=== PATIENT | female | born 2000 | race Caucasian/White ===

== ENCOUNTER 2021-10-29 16:32 | Inpatient (IN) | payer BC, OTHER ==
--- NOTE | 2021-10-28 20:57 | P.HPOB ---
History of Present Illness H&P Date: 10/28/21 Chief Complaint: Postdates induction of labor This is a 21 y.o. female, 3, para 0, with an estimated date of confinement of , estimated gestational age of 40-4/7 weeks, who presents for Cervidil cervical ripening followed by oxytocin induction of labor due to postdates. She complains of irregular contractions and pressure. Her ultrasound today showed estimated weight of 7#2oz. She transferred care to [place] from [place] at about 21 weeks. She did use THC throughout most of the and did cut down after she was started on Zoloft for anxiety. She did have a herpes outbreak at about 30 weeks and is currently on prophylaxis. labs: Blood type-A+ Antibody screen-neg RPR-NR Rubella-immune Hepatitis B surface antigen-neg HIV-NR GC/Chlamydia-neg Quad-neg 1 hr. GTT-71 GBS-neg OB Hx: . History of 2 miscarriages. 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 Review of Systems Constitutional: Denies chills, Denies fever Eyes: denies blurred vision, denies pain Ears, nose, mouth and throat: Denies headache, Denies sore throat Cardiovascular: Denies chest pain, Denies shortness of breath Respiratory: Denies cough Gastrointestinal: Reports abdominal pain (irregular contractions) Genitourinary: Reports pelvic pain, Reports Musculoskeletal: Reports low back pain Integumentary: Denies pruritus, Denies rash Neurological: Denies numbness, Denies weakness Psychiatric: Reports anxiety, Reports depression Past Medical History Past Medical History: No Reported History Past Surgical History: No Surgical Hx Reported Past Anesthesia/Blood Transfusion Reactions: No Reported Reaction Past Psychological History: Anxiety, Depression Smoking Status: Former smoker Past Alcohol Use History: None Reported Past Drug Use History: Marijuana - Past Family History Mother Family Medical History: No Reported History Medications and Allergies Home Medications Medication Instructions Recorded Confirmed Type Acyclovir 400 mg PO BID 10/28/21 10/28/21 History Pnv,Calcium 72/Iron/Folic Acid 1 each PO 10/28/21 History [ Plus Tablet] Sertraline [Zoloft] 25 mg PO DAILY 10/28/21 10/28/21 History Allergies Allergy/AdvReac Type Severity Reaction Status Date / Time No Known Allergies Allergy Verified 10/28/21 20:55 Exam Osteopathic Statement: *. No significant issues noted on an osteopathic structural exam other than those noted in the History and Physical/Consult. HEENT: within normal limits Heart: regular rate and rhythm Lungs: clear to auscultation bilaterally Abdomen: , non-tender Cervix: closed/60%/-2 heart tones: 140's by doppler Extremities: Neg. Nawaf's Assessment and Plan (1) 40 weeks gestation of Status: Acute Code(s): Z3A.40 - 40 WEEKS GESTATION OF SNOMED Code(s): 62089039 Plan: Admit for cervidil cervical ripening followed by oxytocin induction of labor. Expectant management. Epidural anesthesia if desired.
[2021-10-29] MEDS ORDERED: ZOLPIDEM 5 MG TAB PO PRN (16:55)
[2021-10-29] MEDS ORDERED: DINOPROSTONE 10 MG INSERT.ER VAGINAL ONE (16:55)
[2021-10-29 20:23] LABS: Amphetamine Screen,Urine Not Detected (NotDetected); Barbiturate Screen,Urine Not Detected (NotDetected); Benzodiazepines Screen,Urine Not Detected (NotDetected); Cocaine Screen,Urine Not Detected (NotDetected); Methadone Screen, Urine Not Detected (NotDetected); Opiate Screen,Urine Not Detected (NotDetected); Oxycodone Screen, Urine Not Detected (NotDetected); Phencyclidine Screen,Urine Not Detected (NotDetected); Tricyclic Antidepressant,Urine Not Detected (NotDetected); Urn Cannabinoid Scrn Detected (NotDetected)
[2021-10-29] MEDS: ACYCLOVIR 200 MG CAP PO SCH (20:53)
[2021-10-30] MEDS: BUTORPHANOL 1 MG/ML 1 ML VIAL IV PRN ×2 (03:44→08:41)
[2021-10-30] MEDS: LACTATED RINGERS 1,000 ML IV SCH ×3 (03:45→10:44)
[2021-10-30] MEDS ORDERED: OXYTOCIN 10 UNIT/ML 1 ML VIAL IM PRN (03:48)
[2021-10-30] MEDS ORDERED: LIDOCAINE 1% (PF) 10 MG/ML (30 ML SDV) SQ PRN (03:48)
[2021-10-30] MEDS ORDERED: CARBOPROST TROMETHAMINE 250 MCG/ML 1 ML AMP IM PRN (03:48)
[2021-10-30] MEDS ORDERED: TERBUTALINE 1 MG/ML VIAL SQ PRN (03:48)
[2021-10-30] MEDS ORDERED: METHYLERGONOVINE 0.2 MG/ML 1 ML AMP IM PRN (03:48)
[2021-10-30 04:13] LABS: Basophils # (A) 0.1 k/uL (0-0.2); Basophils % (A) 1 %; Eosinophils # (A) 0.2 k/uL (0-0.7); Eosinophils % (A) 1 %; HGB 14.1 gm/dL (11.4-16.0); Lymphocytes # (A) 2.1 k/uL (1.0-4.8); Lymphocytes % (A) 16 %; MCH 31.3 pg (25.0-35.0); MCHC 32.7 g/dL (31.0-37.0); MCV 95.5 fL (80.0-100.0); Mean Platelet Volume 9.8; Monocytes # (A) 0.7 k/uL (0-1.0); Monocytes % (A) 5 %; Neutrophils # (A) 10.3 k/uL (1.3-7.7); Neutrophils % (A) 76 %; Platelet Count 258 k/uL (150-450); RDW 12.8 % (11.5-15.5); WBC 13.5 k/uL (3.8-10.6)
[2021-10-30] MEDS ORDERED: OXYTOCIN 30 UNITS/500 ML NS 30 UNIT in SALINE 1 500ML.BAG IV SCH ×2 (06:00→13:47)
[2021-10-30] MEDS ORDERED: ONDANSETRON 4 MG/2 ML VIAL IVP STA (08:28)
--- NOTE | 2021-10-30 08:28 | P.PN ---
Progress Note - Text Progress Note Date: 10/30/21 Cervidil was removed earlier this morning. The patient has been vomiting quite a bit through the night and this morning. Cervix was noted to be 1 by nursing staff. Currently her cervix is 1-1/2 cm 70% and -2 station. Clear fluid is noted upon artificial rupture of membranes. heart tones are category 1 with irregular contractions. Will give Zofran as needed for nausea and vomiting. Continue oxytocin induction of labor. May have epidural anesthesia when making cervical change.
[2021-10-30] MEDS: PRENATAL VIT-IRON-FOLIC ACID 1 EACH CAP PO SCH (09:46)
[2021-10-30] MEDS: SERTRALINE 25 MG TAB PO SCH (09:46)
[2021-10-30] MEDS: ACYCLOVIR 200 MG CAP PO SCH ×2 (09:47→22:17)
[2021-10-30] MEDS ORDERED: LANOLIN CREAM 5 GM TUBE TOPICAL PRN (13:47)
[2021-10-30] MEDS ORDERED: SIMETHICONE 80 MG CHEWABLE PO PRN (13:47)
[2021-10-30] MEDS ORDERED: ACETAMINOPHEN TAB 325 MG TAB PO PRN (13:47)
[2021-10-30] MEDS ORDERED: diphenhydrAMINE 50 MG CAP PO PRN (13:47)
[2021-10-30] MEDS ORDERED: diphenhydrAMINE 25 MG CAP PO PRN (13:47)
[2021-10-30] MEDS ORDERED: ZOLPIDEM 5 MG TAB PO PRN (13:47)
[2021-10-30] MEDS ORDERED: diphenhydrAMINE 50 MG/ML 1 ML VIAL IVP PRN ×2 (13:47)
[2021-10-30] MEDS ORDERED: BENZOCAINE/MENTHOL SPRAY 1 GM/SPRAY AEROSOL TOPICAL PRN (13:47)
[2021-10-30] MEDS ORDERED: HYDROCORTISONE 2.5% RECTAL CREAM 30 GM TUBE RECTAL PRN (13:47)
[2021-10-30] MEDS: IBUPROFEN 600 MG TAB PO PRN ×2 (14:16→21:34)
--- NOTE | 2021-10-30 19:02 | P.PROBDLV ---
Vaginal Delivery Note - . Vaginal Delivery Note: The patient progressed to complete dilation after oxytocin induction of labor and artificial rupture membranes with clear fluid noticed. She did also receive Cervidil cervical ripening prior to oxytocin induction of labor this morning. She did receive epidural anesthesia. Once reaching complete, she began pushing. 's a came to a crown. With one further push, the 's head delivered across the perineum followed by the anterior shoulder. Nose and mouth were bulb suctioned at the perineum and nuchal cord times one was reduced around the 's head. With one further push, the remainder the infant easily delivered and was placed on mother's abdomen. Cord was clamped and cut and infant was taken to warmer for evaluation. A viable male infant is noted with scores of 9 at 1 minute and 9 at 5 minutes and infant weight of 6 ounces. Placenta delivered shortly thereafter, intact, with a three-vessel cord. Uterus contracted well after oxytocin was given and uterine massage was carried out. Inspection of the perineum revealed a right periurethral laceration and a second-degree perineal laceration. These areas were anesthetized with 1% lidocaine and the right periurethral laceration is repaired with 3-0 Vicryl suture in a running locked fashion. The second-degree is repaired with 3-0 and 2-0 Vicryl suture in the usual multilayer fashion. Estimated blood loss is approximately 200 mL's. Both mother and are in stable condition.
[2021-10-30] MEDS: SENNOSIDES-DOCUSATE SODIUM 1 EACH TAB PO SCH (19:59)
[2021-10-31 07:51] LABS: Basophils % (A) 0 %; Eosinophils # (A) 0.1 k/uL (0-0.7); Eosinophils % (A) 1 %; HCT 42.7 % (34.0-46.0); HGB 13.4 gm/dL (11.4-16.0); Lymphocytes # (A) 1.8 k/uL (1.0-4.8); Lymphocytes % (A) 13 %; MCH 30.7 pg (25.0-35.0); MCHC 31.5 g/dL (31.0-37.0); MCV 97.5 fL (80.0-100.0); Monocytes # (A) 0.5 k/uL (0-1.0); Monocytes % (A) 4 %; Neutrophils # (A) 11.1 k/uL (1.3-7.7); Neutrophils % (A) 81 %; Platelet Count 233 k/uL (150-450); RBC 4.37 m/uL (3.80-5.40); RDW 14.2 % (11.5-15.5); WBC 13.7 k/uL (3.8-10.6)
[2021-10-31] MEDS: IBUPROFEN 600 MG TAB PO PRN (08:19)
[2021-10-31] MEDS: SERTRALINE 25 MG TAB PO SCH (08:20)
[2021-10-31] MEDS: SENNOSIDES-DOCUSATE SODIUM 1 EACH TAB PO SCH (08:20)
[2021-10-31] MEDS: ACYCLOVIR 200 MG CAP PO SCH (08:20)
[2021-10-31] MEDS: PRENATAL VIT-IRON-FOLIC ACID 1 EACH CAP PO SCH (08:20)
[2021-10-31 09:47] VITALS: RESP 16
--- NOTE | 2021-10-31 11:04 | P.DS ---
Providers Date of admission: 10/29/21 16:32 Expected date of discharge: 10/31/21 Attending physician: Tamela Nieto Primary care physician: Stated None - Discharge Diagnosis(es) (1) 40 weeks gestation of Current Visit: No Status: Acute Hospital Course: This is a 21-year-old female 3 para 0 at 40-5/7 weeks who presented for Cervidil cervical ripening followed by oxytocin induction of labor. She delivered vaginally a viable male on 10/30/2021 with scores of 9 at 1 minute and 9 at 5 minutes and infant weight of 6 lbs. 6 oz. Her course has been uncomplicated. Lochia has been decreasing. Pain is well- controlled. Vital signs are stable. Abdomen is soft with fundus firm and nontender. Extremities show negative Homans. Impression is status post vaginal delivery day #1. Plan is to discharge home later today. Routine instructions are given. She will be given a prescription for ibu profen and a breast pump. commissioner of relocation services has been consulted due to THC use during . She is advised to call the office if she has any further questions or concerns prior to her visit. She is advised to follow up in the office in 6 weeks. Procedures: Oxytocin induction of labor Spontaneous vaginal delivery of a viable male infant on 10/30/2021 Patient Condition at Discharge: Stable Plan - Discharge Summary New Discharge Prescriptions: New Ibuprofen [Motrin] 600 mg PO Q6HR PRN #60 tab PRN Reason: Mild Pain (Scale 1 To 3) Continue Sertraline [Zoloft] 25 mg PO DAILY Acyclovir 400 mg PO BID Pnv,Calcium 72/Iron/Folic Acid [ Plus Tablet] 1 each PO DAILY Discharge Medication List Acyclovir 400 mg PO BID 10/28/21 [History] Pnv,Calcium 72/Iron/Folic Acid [ Plus Tablet] 1 each PO DAILY 10/28/21 [History] Sertraline [Zoloft] 25 mg PO DAILY 10/28/21 [History] Ibuprofen [Motrin] 600 mg PO Q6HR PRN #60 tab 10/31/21 [Rx] Follow up Appointment(s)/Referral(s): Tamela Nieto DO [Doctor of Osteopathic Medicine] - 12/10/21 11:30 am Activity/Diet/Wound Care/Special Instructions: Instructions 1. Do not begin any exercise program for 3 weeks. 2. Do not resume sexual relations for 3 weeks or longer if uncomfortable. 3. You may take tub baths or showers at any time. 4. You may use tampons if desired after 3 weeks. 5. Keep the area of episiotomy (stitches) clean and dry. 6. If you are not nursing, wear a good fitting, supportive bra during the day and limit fluid intake for at least 1 week to prevent breast engorgement. 7. Call the office, [phone], within the next week to make appointment for your 6 week checkup if it has not already been made. 8. Report any of the following occurrences to the doctor promptly: a. Heavy, excessive bleeding b. Chills, fever c. Burning or frequency of urination d. Pain or redness and breasts if nursing e. Increasing pain or swelling in episiotomy (stitches). In addition to the above instructions, the following additional should be followed: 1. No heavy lifting or straining (exercising) until after 6 week checkup. 2. Keep abdominal incision clean and dry: You may wear a dressing if more comfortable. 3. Make office appointment for 10 days after going home or as instructed by her doctor. Discharge Disposition: HOME SELF-CARE
[2021-10-31 13:44] VITALS: BP 110/65; PULSE 72; TEMP 98
== END 2021-10-31 15:50 | disposition home or self-care (01) | DRG 806 ==
LOC: 4FBP 16:32
PROVIDERS: ADMIT Obstetrics & Gynecology; ATTEND Obstetrics & Gynecology
PROC: 10E0XZZ Delivery of Products of Conception, External Approach (ICD-10-PCS; principal; 2021-10-30)
PROC: 0KQM0ZZ Repair Perineum Muscle, Open Approach (ICD-10-PCS; 2021-10-30)
PROC: 3E0P7VZ Introduction of Hormone into Female Reproductive, Via Natural or Artificial Opening (ICD-10-PCS; 2021-10-30)
PROC: 3E033VJ Introduction of Other Hormone into Peripheral Vein, Percutaneous Approach (ICD-10-PCS; 2021-10-30)
PROC: 10907ZC Drainage of Amniotic Fluid, Therapeutic from Products of Conception, Via Natural or Artificial Opening (ICD-10-PCS; 2021-10-30)
PROC: 4A0HXCZ Measurement of Products of Conception, Cardiac Rate, External Approach (ICD-10-PCS; 2021-10-30)
PROC: 0UQMXZZ Repair Vulva, External Approach (ICD-10-PCS; 2021-10-30)
DX: O69.81X0 Labor and delivery complicated by cord around neck, without compression, not applicable or unspecified (principal); O99.324 Drug use complicating childbirth; Z37.0 Single live birth; O99.354 Diseases of the nervous system complicating childbirth; O98.52 Other viral diseases complicating childbirth; A60.00 Herpesviral infection of urogenital system, unspecified; F32.A Depression, unspecified; F41.9 Anxiety disorder, unspecified; O48.0 Post-term pregnancy; O71.82 Other specified trauma to perineum and vulva; O70.1 Second degree perineal laceration during delivery; F12.90 Cannabis use, unspecified, uncomplicated; O99.344 Other mental disorders complicating childbirth; Z3A.40 40 weeks gestation of pregnancy; Z79.899 Other long term (current) drug therapy; Z87.891 Personal history of nicotine dependence; Z87.59 Personal history of other complications of pregnancy, childbirth and the puerperium
CPT/HCPCS: 80306; 85025; 86850; 86900; 86901